=== PATIENT | female | born 1935 ===

== ENCOUNTER 2016-09-13 11:53 | Emergency (ER) | payer MEDICARE, OTHER ==
[2016-09-13 12:04] VITALS: BMI 29.2
[2016-09-13 12:17] VITALS: RESP 18
--- NOTE | 2016-09-13 14:59 | C.PDOC ---
History Of Present Illness A 81 year old female patient presents to the ED c/o constant pain of the bottom of her neck that radiates to her left shoulder and left arm for 2 weeks. Patient notes that pain worsens when laying down and has no effect by movements. Patient has not taking any medications for her symptoms. patient denies trauma, joint pain, chest pain, SOB, fever, chills, nausea, vomiting, or any other complaints. Time Seen by Provider: 09/13/16 12:35 Chief Complaint (Nursing): Upper Extremity Problem/Injury History Per: Patient History/Exam Limitations: no limitations Onset/Duration Of Symptoms: Days Current Symptoms Are (Timing): Still Present Quality: Other (Constant) Severity: Mild Exacerbating Factor(s): Other (When laying) Additional History Per: Patient Past Medical History Reviewed: Historical Data, Nursing Documentation, Vital Signs Vital Signs: Last Vital Signs Temp 97.9 F 09/13/16 12:04 Pulse 75 09/13/16 12:04 Resp 18 09/13/16 12:04 BP 156/77 H 09/13/16 12:04 Pulse Ox 97 09/13/16 15:24 - Medical History PMH: Gastritis, HTN Family History: States: Unknown Family Hx - Social History Hx Alcohol Use: No Hx Substance Use: No - Immunization History Hx Tetanus Toxoid Vaccination: No Hx Influenza Vaccination: No Hx Pneumococcal Vaccination: No Review Of Systems Except As Marked, All Systems Reviewed And Found Negative. Constitutional: Negative for: Fever, Chills, Other (Trauma) Cardiovascular: Negative for: Chest Pain Respiratory: Negative for: Shortness of Breath Gastrointestinal: Negative for: Nausea, Vomiting Musculoskeletal: Positive for: Neck Pain, Shoulder Pain (Radaition to left shoulder), Arm Pain (Radaition to left arm). Negative for: Other (Joint pain) Physical Exam - Physical Exam Appears: Non-toxic, No Acute Distress Skin: Warm, Dry Head: Atraumatic, Normacephalic Neck: Midline Cervical Tenderness (Tenderness over C6-C7 area of the neck), Supple Cardiovascular: Rhythm Regular, No Murmur Respiratory: Normal Breath Sounds, No Rales, No Rhonchi, No Wheezing Extremity: Normal ROM Pulses: Left Carotid: Normal, Right Carotid: Normal Neurological/Psych: Oriented x3, Normal Speech, Normal Cognition ED Course And Treatment ECG: Interpreted By Me, Viewed By Me ECG Rhythm: Sinus Rhythm (69 ) Interpretation Of ECst degree AV Block O2 Sat by Pulse Oximetry: 97 (Room air) Pulse Ox Interpretation: Normal - Other Rad C Spine X-Ray: Interpreted by Me (DJD with loss of space 5-6) Medical Decision Making Medical Decision Making: Plans: -EKG -Toradol -X-Ray Spine AP and lateral -XRay left shoulder -Reassess and disposition Pt feeling better post meds no indication of cardiac casue X Ray with c5-6 djd Plan dc home nsal Disposition - Disposition Disposition: HOME/ ROUTINE Disposition Time: 15:42 Condition: GOOD Additional Instructions: Follow up with PMD Prescriptions: Naproxen [Naprosyn] 1 tab PO BID PRN #25 tab PRN Reason: Pain Instructions: Cervical Radiculopathy (ED) - Clinical Impression Clinical Impression: Cervical radiculopathy - Scribe Statement The provider has reviewed the documentation as recorded by the Scribe Juancarlos ding All medical record entries made by the Scribe were at my direction and personally dictated by me. I have reviewed the chart and agree that the record accurately reflects my personal performance of the history, physical exam, medical decision making, and the department course for this patient. I have also personally directed, reviewed, and agree with the discharge instructions and disposition.
[2016-09-13 16:01] VITALS: BP 146/85; PULSE 84; TEMP 97.6; O2SAT 96
--- NOTE | 2016-09-13 16:20 | RAD ---
PROCEDURE: Radiographs of the Left Shoulder HISTORY: pain COMPARISON: None available FINDINGS: BONES: No acute displaced fracture. The distal clavicle and underlying ribs appear intact. JOINTS: No acute dislocation. SOFT TISSUES: Soft tissues appear unremarkable. No evidence of radiopaque foreign body. IMPRESSION: No acute displaced fracture or dislocation evident. If symptoms persist or if there is continued clinical concern, x-ray follow-up in 7-10 days should be considered.
--- NOTE | 2016-09-13 16:31 | RAD ---
PROCEDURE: Cervical Spine Radiographs. HISTORY: Pain. Denies trauma. COMPARISON: None available. FINDINGS: Straightening of the normal cervical lordosis may be related to muscle spasm or positioning. The cervical spine is incompletely visualized beyond C5 on the lateral view. Multilevel degenerative changes including intervertebral disc space narrowing and small osteophyte formation. No acute displaced fracture identified . No prevertebral soft tissue swelling identified. Incidental note is made of absent dentition. IMPRESSION: Straightening of the normal cervical lordosis may be related to muscle spasm or positioning. The cervical spine is incompletely visualized beyond C5 on the lateral view. Multilevel degenerative changes.
--- NOTE | 2016-09-14 12:01 | CARD ---
APPROVED REPORT EKG Measurement Heart [id number] [place] [id number] <Conclusion> Sinus rhythm with 1st degree AV block Left anterior fascicular block Minimal voltage criteria for LVH, may be normal variant Abnormal ECG
== END 2016-09-13 16:00 | disposition home or self-care (01) ==
LOC: C.ER 11:53
DX: M54.12 Radiculopathy, cervical region (principal)
CPT/HCPCS: 72040; 73030; 93005; 96372; 99284; J1885

== ENCOUNTER 2017-03-12 22:16 | Emergency (ER) | payer OTHER ==
[2017-03-12 22:16] VITALS: BMI 29.2
[2017-03-12 22:33] VITALS: TEMP 97.7
--- NOTE | 2017-03-12 23:02 | C.PDOC ---
History Of Present Illness 82 year old female who presents to the ER after she found her blood pressure to be elevated at home. Patient is currently on valsartan and reports having good compliance with her medications. Denies chest pain, SOB, or abdominal pain. Time Seen by Provider: 03/12/17 22:33 Chief Complaint (Nursing): High Blood Pressure History Per: Patient History/Exam Limitations: no limitations Onset/Duration Of Symptoms: Hrs Current Symptoms Are (Timing): Still Present Associated Symptoms: denies: Chest Pain, Dyspnea, Dizziness, Blurred Vision, Focal Weakness, Headache Quality Of Symptoms: Asymptomatic Severity: None Exacerbating Factor(s): Pos: None Recent travel outside of the [place]: No Past Medical History Reviewed: Historical Data, Nursing Documentation, Vital Signs Vital Signs: Last Vital Signs Temp 97.7 F 03/13/17 00:36 Pulse 86 03/13/17 00:36 Resp 20 03/13/17 00:36 BP 179/96 H 03/13/17 00:36 Pulse Ox 96 03/13/17 00:36 - Medical History PMH: Back Problems, Gastritis, HTN Family History: States: Unknown Family Hx - Social History Hx Alcohol Use: No Hx Substance Use: No - Immunization History Hx Tetanus Toxoid Vaccination: No Hx Influenza Vaccination: No Hx Pneumococcal Vaccination: No Review Of Systems Except As Marked, All Systems Reviewed And Found Negative. Constitutional: Negative for: Fever, Chills Cardiovascular: Negative for: Chest Pain, Palpitations Respiratory: Negative for: Shortness of Breath Gastrointestinal: Negative for: Nausea, Vomiting, Abdominal Pain Neurological: Negative for: Weakness, Numbness Physical Exam - Physical Exam Appears: Non-toxic, No Acute Distress Skin: Normal Color, Warm, Dry Head: Atraumatic, Normacephalic Eye(s): bilateral: Normal Inspection, PERRL, EOMI Oral Mucosa: Moist Neck: Normal, Supple, Other (Pinched nerve to left side) Lymphatic: Normal Exam, No Adenopathy Chest: Symmetrical, No Tenderness Cardiovascular: Rhythm Regular Respiratory: Normal Breath Sounds, No Accessory Muscle Use, No Rales, No Rhonchi , No Wheezing Gastrointestinal/Abdominal: Soft, No Tenderness Extremity: Normal ROM (x4) Pulses: Left Radial: Normal, Right Radial: Normal, Left Dorsalis Pedis: Normal, Right Dorsalis Pedis: Normal Neurological/Psych: Oriented x3, Normal Speech, Normal Cognition, Normal Cranial Nerves Extremity: Right: No Drift, Left: No Drift, Upper: No Drift, Lower: No Drift ED Course And Treatment - Laboratory Results Result Diagrams: 03/12/17 23:13 03/12/17 23:13 ECG: Interpreted By Me ECG Rhythm: Sinus Rhythm, 1st Degree HB ECG Interpretation: Normal, No Acute Changes O2 Sat by Pulse Oximetry: 97 (Room air) Pulse Ox Interpretation: Normal - Radiology CXR: Interpreted by Me CXR Interpretation: Yes: No Acute Disease, Heart Size (LAE otherwise neg) Medical Decision Making Medical Decision Making: Impression: Elevated Blood pressure Plan: * Blood work * CXR * EKG Disposition - Disposition Referrals: Paco Tapia MD [Staff Provider] - Disposition: HOME/ ROUTINE Disposition Time: 00:12 Condition: GOOD Additional Instructions: take clonidine patch as directed beginning tomorrow Prescriptions: cloNIDine 0.1 mg/24 hr [catapres TTS1] 0.1 mg TD QWK #1 patch Instructions: Clonidine (Absorbed through the skin) Forms: [employer] (Sinhala), Gen Discharge Inst [place]ese - Clinical Impression Clinical Impression: Hypertension - Scribe Statement The provider has reviewed the documentation as recorded by the Scribe Brendan Fofana All medical record entries made by the Scribe were at my direction and personally dictated by me. I have reviewed the chart and agree that the record accurately reflects my personal performance of the history, physical exam, medical decision making, and the department course for this patient. I have also personally directed, reviewed, and agree with the discharge instructions and disposition.
[2017-03-12 23:17] LABS: BASO % 0.7 % (0.0-2.0); EOS # 0.3 K/uL (0.0-0.7); EOS % 4.6 % (0.0-4.0); HEMATOCRIT 40.5 % (34.0-47.0); LYMPH # 2.6 K/uL (1.0-4.3); LYMPH % 42.7 % (20.0-40.0); MEAN CELL VOLUME 80.7 fL (81.0-99.0); MEAN CORPUSCULAR HEMOGLOBIN 26.2 pg (27.0-31.0); MEAN CORPUSCULAR HGB CONC 32.5 g/dL (33.0-37.0); MEAN PLATELET VOLUME 7.5 fL (7.2-11.7); MONO # 0.5 K/uL (0.0-0.8); MONO % 8.2 % (0.0-10.0); NRBC % 0.1 % (0.0-2.0); RED CELL DISTRIBUTION WIDTH 14.6 % (11.5-14.5); WHITE BLOOD COUNT 6.2 K/uL (4.8-10.8)
[2017-03-12 23:24] LABS: CHLORIDE 101 mmol/L (98-107); SODIUM 137 mmol/L (132-148)
[2017-03-12 23:26] LABS: BILIRUBIN,TOTAL 0.5 mg/dL (0.2-1.3); CARBON DIOXIDE 25 mmol/L (22-30); GFR AFRICAN-AMERICAN > 60
[2017-03-12 23:27] LABS: ALB/GLOB RATIO 1.2 (1.0-2.1); ALKALINE PHOSPHATASE 73 U/L (38-126); ALT/SGPT 34 U/L (9-52); AST/SGOT 31 U/L (14-36); BLOOD UREA NITROGEN 13 mg/dL (7-17); CALCIUM 9.1 mg/dl (8.6-10.4); GLUCOSE,RANDOM 111 mg/dL (65-105); TOTAL PROTEIN 8.1 g/dL (6.3-8.3)
[2017-03-13 00:37] VITALS: BP 179/96; PULSE 86; RESP 20
[2017-03-13 00:45] VITALS: O2SAT 97
--- NOTE | 2017-03-13 09:15 | RAD ---
PROCEDURE: CHEST RADIOGRAPH, 1 VIEW HISTORY: chest pain COMPARISON: 12/04/2016 FINDINGS: LUNGS: Clear. PLEURA: No pneumothorax or pleural fluid seen. CARDIOVASCULAR: Normal. OSSEOUS STRUCTURES: No significant abnormalities. VISUALIZED UPPER ABDOMEN: Normal. OTHER FINDINGS: None. IMPRESSION: No active disease.
--- NOTE | 2017-03-13 23:38 | CARD ---
APPROVED REPORT EKG Measurement Heart [id number] [place] [id number] <Conclusion> Sinus rhythm with 1st degree AV block Left anterior fascicular block Minimal voltage criteria for LVH, may be normal variant Abnormal ECG
== END 2017-03-13 00:44 | disposition home or self-care (01) ==
LOC: C.ER 22:16
DX: I10 Essential (primary) hypertension (principal)

== ENCOUNTER 2017-04-12 14:20 | Emergency (ER) | payer OTHER ==
[2017-04-12 14:39] VITALS: BMI 27.4
[2017-04-12 14:41] VITALS: O2SAT 97
--- NOTE | 2017-04-12 16:33 | RAD ---
HISTORY: SOB COMPARISON: Chest x-ray performed 03/12/17 TECHNIQUE: Chest PA and lateral FINDINGS: Examination limited by habitus. LUNGS: Biapical pleural thickening. No focal consolidation. Please note that chest x-ray has limited sensitivity for the detection of pulmonary masses. PLEURA: No significant pleural effusion identified. No definite pneumothorax . CARDIOVASCULAR: Heart size appears top normal. Ectatic aorta. OSSEOUS STRUCTURES: Degenerative changes. VISUALIZED UPPER ABDOMEN: Unremarkable. OTHER FINDINGS: None. IMPRESSION: Biapical pleural thickening. No focal consolidation, significant pleural effusion, or definite pneumothorax identified.
--- NOTE | 2017-04-12 16:46 | C.PDOC ---
History Of Present Illness <Gretchen Moser - Last Filed: 04/12/17 19:11> <Rossy Sultana - Last Filed: 04/15/17 12:31> 82 year old female with a Hx of HTN presents to the ER with a complaint of swelling to the lower extremities, associated with SOB and a productive cough for the past week. Patient states she saw her PMD started her on cough medicine. Denies chest pain, nausea, or vomiting. (Rossy Sultana) <Gretchen Moser - Last Filed: 04/12/17 19:11> History Per: Patient History/Exam Limitations: no limitations Onset/Duration Of Symptoms: Days Recent travel outside of the [place]: No <Rossy Sultana - Last Filed: 04/15/17 12:31> Time Seen by Provider: 04/12/17 15:46 Chief Complaint (Nursing): Lower Extremity Problem/Injury Past Medical History Reviewed: Historical Data, Nursing Documentation, Vital Signs - Medical History PMH: Back Problems, Gastritis, HTN Surgical History: No Surg Hx Family History: States: Unknown Family Hx - Social History Hx Alcohol Use: No Hx Substance Use: No - Immunization History Hx Tetanus Toxoid Vaccination: No Hx Influenza Vaccination: No Hx Pneumococcal Vaccination: No <Rossy Sultana - Last Filed: 04/15/17 12:31> Vital Signs: Last Vital Signs Temp 97.6 F 04/12/17 19:00 Pulse 74 04/12/17 19:00 Resp 18 04/12/17 19:00 BP 147/74 04/12/17 19:00 Pulse Ox 97 04/12/17 19:00 Review Of Systems Cardiovascular: Negative for: Chest Pain Respiratory: Positive for: Shortness of Breath Gastrointestinal: Negative for: Nausea, Vomiting Musculoskeletal: Positive for: Other (Lower leg swelling) <Rossy Sultana - Last Filed: 04/15/17 12:31> Physical Exam - Physical Exam Appears: Non-toxic, No Acute Distress, Other (Speaking in complete sentences, layign flat) Skin: Normal Color, Warm, Dry Head: Atraumatic, Normacephalic Eye(s): bilateral: Normal Inspection, EOMI Nose: Normal Oral Mucosa: Moist Throat: Normal, No Erythema, No Exudate Neck: Normal ROM, Supple Chest: Symmetrical Cardiovascular: Rhythm Regular Respiratory: Normal Breath Sounds, No Rales, No Rhonchi, No Wheezing Gastrointestinal/Abdominal: Soft, No Tenderness Extremity: Pedal Edema (+1 ) Neurological/Psych: Oriented x3, Normal Speech, Other (No focal deficits) <Rossy Sultana - Last Filed: 04/15/17 12:31> ED Course And Treatment - Laboratory Results Result Diagrams: 04/12/17 17:07 04/12/17 17:34 <Gretchen Moser - Last Filed: 04/12/17 19:11> - Laboratory Results Result Diagrams: 04/12/17 17:07 04/12/17 17:34 ECG: Interpreted By Me, Viewed By Me ECG Rhythm: Sinus Rhythm O2 Sat by Pulse Oximetry: 97 (Room air) Pulse Ox Interpretation: Normal - Other Rad CXR X-Ray: Viewed By Me, Read By Radiologist Interpretation: HISTORY: SOB. COMPARISON: Chest x-ray performed 03/12/17. TECHNIQUE: Chest PA and lateral. FINDINGS: Examination limited by habitus. LUNGS: Biapical pleural thickening. No focal consolidation. Please note that chest x-ray has limited sensitivity for the detection of pulmonary masses. PLEURA: No significant pleural effusion identified. No definite pneumothorax . CARDIOVASCULAR: Heart size appears top normal. Ectatic aorta. OSSEOUS STRUCTURES: Degenerative changes. VISUALIZED UPPER ABDOMEN: Unremarkable. OTHER FINDINGS: None. IMPRESSION: Biapical pleural thickening. No focal consolidation, significant pleural effusion, or definite pneumothorax identified. Progress Note: EKG, blood work, urinalysis, and CXR ordered. Upon labs and XR, pt was offered admission. Pt refused, noting she feels well. Has no SOB, chest pain, or other complaints. Pt note she never has chest pain. Notes the SOB that she had has been going on for many months. Only change in cough. Afbrile. Pt instructed to return to ER if symptoms persist or worsen. Pt Regina attempted to be contacted , no call back. Case discussed with Dr Moser, agreed upon plan an ddischarge. <Rossy Sultana - Last Filed: 04/15/17 12:31> Disposition Counseled Patient/Family Regarding: Studies Performed, Diagnosis, Need For Followup - Disposition Disposition Time: 07:15 <Gretchen Moser - Last Filed: 04/12/17 19:11> <Rossy Sultana - Last Filed: 04/15/17 12:31> - Disposition Referrals: aPco Tapia MD [Staff Provider] - Disposition: HOME/ ROUTINE Condition: STABLE Additional Instructions: FOLLOW UP WITH DR TAPIA SATURDAY, AND BRING COPIES OF ALL TESTS TO HIM RETURN TO EMERGENCY ROOM IF SYMPTOMS WORSEN SIGA CON DR TAPIA BRIAN, Y LLEVE COPIAS DE TODOS LOS EXMENES REGRESE AL TEJAL DE EMERGENCIA SI LOS SNTOMAS EMPEORAN Instructions: Leg Edema (ED) Forms: [employer] (Tajik) Print Language: [place] - Clinical Impression Clinical Impression: Leg edema, Cough <Gretchen Moser - Last Filed: 04/12/17 19:11> - Scribe Statement The provider has reviewed the documentation as recorded by the Scribe <Rossy Sultana - Last Filed: 04/15/17 12:31> - Scribe Statement Brendan Fofana All medical record entries made by the Scribe were at my direction and personally dictated by me. I have reviewed the chart and agree that the record accurately reflects my personal performance of the history, physical exam, medical decision making, and the department course for this patient. I have also personally directed, reviewed, and agree with the discharge instructions and disposition. (Rossy Sultana) Addendum <Gretchen Moser - Last Filed: 04/12/17 19:11> <Rossy Sultana - Last Filed: 04/15/17 12:31> Addendum: 04/12/17 19:11 Patient assessed, is currently resting comfortably and states she feels well. She states she would like to be discharged home. On exam, she has good air entry B/L without wheezing/rales/rhonchi. Pox is WNL. D-dimer negative, blood work otherwise unremarkable except for mild hypokalemia. Patient given copies of all studies, and have appointment with Dr. Tapia Saturday. She understands she should return to ED if symptoms worsen. (Gretchen Moser)
[2017-04-12 17:10] LABS: BASO % 0.6 % (0.0-2.0); EOS # 0.3 K/uL (0.0-0.7); EOS % 3.3 % (0.0-4.0); LYMPH % 36.2 % (20.0-40.0); MEAN CORPUSCULAR HEMOGLOBIN 25.7 pg (27.0-31.0); MEAN CORPUSCULAR HGB CONC 32.1 g/dL (33.0-37.0); MEAN PLATELET VOLUME 8.1 fL (7.2-11.7); MONO # 0.8 K/uL (0.0-0.8); MONO % 10.3 % (0.0-10.0); NRBC % 0.1 % (0.0-2.0); RED CELL DISTRIBUTION WIDTH 14.2 % (11.5-14.5); WHITE BLOOD COUNT 8.2 K/uL (4.8-10.8)
[2017-04-12 18:00] LABS: ALKALINE PHOSPHATASE 96 U/L (38-126); ALT/SGPT 36 U/L (9-52); AST/SGOT 31 U/L (14-36); BILIRUBIN,TOTAL 0.7 mg/dL (0.2-1.3); BLOOD UREA NITROGEN 11 mg/dL (7-17); CALCIUM 8.9 mg/dl (8.6-10.4); CARBON DIOXIDE 30 mmol/L (22-30); CHLORIDE 95 mmol/L (98-107); GFR AFRICAN-AMERICAN > 60; GLUCOSE,RANDOM 114 mg/dL (65-105); POTASSIUM 3.2 mmol/L (3.6-5.2); SODIUM 134 mmol/L (132-148); TOTAL PROTEIN 8.1 g/dL (6.3-8.3)
[2017-04-12] MEDS ORDERED: Potassium Chloride 20 mEq ER Tab PO STA (18:01)
[2017-04-12] MEDS ORDERED: Potassium Chloride 20 mEq ER Tab PO ONE (18:27)
[2017-04-12 19:01] VITALS: BP 147/74; PULSE 74; RESP 18; TEMP 97.6
--- NOTE | 2017-04-15 09:01 | CARD ---
APPROVED REPORT EKG Measurement Heart [id number] [place] [id number] <Conclusion> Sinus rhythm with 1st degree AV block Left anterior fascicular block Abnormal ECG
== END 2017-04-12 19:39 | disposition home or self-care (01) ==
LOC: C.ER 14:20
DX: R60.0 Localized edema (principal); E87.6 Hypokalemia